=== PATIENT | female | born 1955 | race Caucasian/White ===

== ENCOUNTER 2022-08-12 11:00 | Outpatient (RCR) | payer OTHER, SELFPAY ==
--- NOTE | 2022-07-29 13:27 | HMH.PTOPEV ---
PT Outpatient Evaluation Rehab PT Outpatient Evaluation Start: 07/29/22 13:08 Freq: Status: Active Protocol: Document 07/29/22 13:08 ELVA (Rec: 07/29/22 13:27 ELVA [id number]) E-signed By Richie Adams, PT Outpatient Therapy Subjective History Subjective History Patient is a 66 year old female presenting to outpatient PT with reports acute L sided cervical spine pain starting approximately 1 month ago. Initial injury occurred while performing work related duties including repetitive heavy lifing at [employer]. Patient suggests that this is a workmans comp case, but no documentation on file to confirm. Comorbidities include hx of L RCR x 2, ORIF L wrist, bowel resection and appendectomy. Chief Complaint Pain,Spasms,Stiff,Paresthesia Symptom Type Burning,Numbness,Tingling Symptoms Relieved By Rest/Positioning,OTC Meds, Prescription Meds Symptoms Aggravated By Physical Activity,Lifting Prior Functional Limitations None Current Functional Limitations Reaching,Lifting,Housework, Driving,Sleeping Symptom Description Constant and Continuous, Constant but Variable Level of pain today (0-10) 8 Pain scale - at its best (0-10) 4 Pain scale - at its worst (0-10) 8 Cervical Eval Palpation Cervical Muscles L Cervical Paraspinal,L Suboccipital,L CT Junction,L Thoracic Paraspinals Cervical/Thoracic Palpation Findings Tenderness,Spasm Posture Head/C-Spine Posture Sitting Position C-Spine Flattened Head/C-Spine Posture Standing Position C-Spine Flattened Flexibility Deficits Upper Trapezius Muscle Length (L) Moderate Tightness Levaetor Scapulae Muscle Length (L) Moderate Tightness Pectoralis Minor Muscle Length (L) Moderate Tightness Passive Joint Mobility Cervical PIVM Dec: R OA L OA R AA L AA R C2/3 L C2/3 R C3/4 L C3/4 R C4/5 L C4/5 R C5/6
== END 2022-08-12 11:05 | disposition home or self-care (01) ==
LOC: PT 11:00
PROVIDERS: PCP Family Medicine; Visit Provider Family Medicine
DX: M54.2 Cervicalgia (principal); M25.512 Pain in left shoulder
CPT/HCPCS: 97010; 97014; 97110; 97163; G0283

== ENCOUNTER → 2023-05-03 23:00 | Outpatient (CLI) | payer MEDICARE, SELFPAY ==
[2023-05-03 18:43] LABS: Basophils % 0.8 % (0.1-2.0); Eosinophils # 0.1 K/mm3 (0.0-0.4); Eosinophils % 2.5 % (0.1-12.0); Hematocrit 42.6 % (37.0-47.0); Hemoglobin 13.5 g/dL (12.2-16.2); Lymphocytes # 1.9 K/mm3 (0.7-4.5); Lymphocytes % 37.7 % (10-50); Mean Corpuscular HGB Conc 31.6 g/dL (31.8-35.4); Mean Corpuscular Hemoglobin 31.1 pg (27.0-31.2); Mean Corpuscular Volume 98.6 fl (81-99); Mean Platelet Volume 10.4 fl (7.4-10.4); Monocytes # 0.4 K/mm3 (0.1-1.0); Monocytes % 7.9 % (1.7-9.3); Neutrophils # 2.6 K/mm3 (1.8-7.8); Neutrophils % 51.1 % (37.0-80.0); Platelet Count 242 K/mm3 (142-424); Red Blood Count 4.32 M/mm3 (4.20-5.40); Red Cell Distribution Width 12.4 % (11.5-17.5)
[2023-05-03 18:46] LABS: Alanine Aminotransferase 20 U/L (12-78); Albumin Level 4.4 g/dl (3.5-5.0); Albumin/Globulin Ratio 1.6 (1.1-1.8); Alkaline Phosphatase 78 U/L (38-126); Aspartate Amino Transferase 30 U/L (14-36); Bilirubin,Total 0.3 mg/dl (0.2-1.3); Blood Urea Nitrogen 9 mg/dl (7-17); Calcium 9.6 mg/dl (8.4-10.2); Carbon Dioxide 26 mmol/L (22.0-30.0); Chloride 107 mmol/L (98-107); Chol/HDL Ratio 3.6 (1-3.5); Cholesterol 228 mg/dl (140-200); Estimated Glomerular Filt Rate 100 ml/min (>60); GFR (African American) 121 ML/MIN (>60); Globulin 2.7 g/dL (1.3-3.2); Glucose 97 mg/dl (74-100); HDL Cholesterol 64 mg/dl (40-60); Sodium 140 mmol/L (136-145); Total Protein,Serum 7.1 g/dl (6.3-8.2); Triglycerides 190 mg/dl (30-150); VLDL Cholesterol 38 mg/dL (0-40)
[2023-05-03 18:57] LABS: Direct LDL Cholesterol 116.98 mg/dL (100-129)
[2023-05-03 18:58] LABS: Anion Gap 11.3 mEq/L (5-15); Potassium 4.3 mmoL/L (3.5-5.1)
[2023-05-03 19:20] LABS: Thyroid Stimulating Hormone 1.21 uIU/mL (0.465-4.68)
[2023-05-03 22:54] LABS: Hemoglobin A1C 5.4 % (4.0-6.0)
== END ==
PROVIDERS: PCP Family Medicine; Visit Provider Family Medicine
DX: E07.9 Disorder of thyroid, unspecified (principal); H69.82 Other specified disorders of Eustachian tube, left ear; Z00.8 Encounter for other general examination; E11.9 Type 2 diabetes mellitus without complications; E78.5 Hyperlipidemia, unspecified
CPT/HCPCS: 80053; 80061; 83036; 84443; 85025

== ENCOUNTER 2024-07-28 09:06 | Outpatient (CLI) | payer MEDICARE, SELFPAY ==
[2024-07-28 18:25] LABS: Albumin Level 4.7 g/dl (3.5-5.0); Chloride 101 mmol/L (98-107); Sodium 137 mmol/L (136-145)
[2024-07-28 18:27] LABS: Basophils # 0.1 K/mm3 (0-0.2); Basophils % 1.5 % (0.1-2.0); Eosinophils # 0.1 K/mm3 (0.0-0.4); Eosinophils % 1.7 % (0.1-12.0); Hematocrit 39.9 % (37.0-47.0); Hemoglobin 13.6 g/dL (12.2-16.2); Lymphocytes # 1.6 K/mm3 (0.7-4.5); Lymphocytes % 33.4 % (10-50); Mean Corpuscular HGB Conc 34.2 g/dL (31.8-35.4); Mean Corpuscular Hemoglobin 31.9 pg (27.0-31.2); Mean Corpuscular Volume 93.4 fl (81-99); Mean Platelet Volume 10.3 fl (7.4-10.4); Monocytes # 0.3 K/mm3 (0.1-1.0); Monocytes % 6.9 % (1.7-9.3); Neutrophils # 2.7 K/mm3 (1.8-7.8); Neutrophils % 56.6 % (37.0-80.0); Platelet Count 215 K/mm3 (142-424); Red Blood Count 4.27 M/mm3 (4.20-5.40); Red Cell Distribution Width 12.8 % (11.5-17.5); White Blood Count 4.8 K/mm3 (4.8-10.8)
[2024-07-28 18:28] LABS: Alanine Aminotransferase 21 U/L (12-78); Albumin/Globulin Ratio 1.6 (1.1-1.8); Alkaline Phosphatase 85 U/L (38-126); Aspartate Amino Transferase 28 U/L (14-36); Bilirubin,Total 0.6 mg/dl (0.2-1.3); Blood Urea Nitrogen 9 mg/dl (7-17); Carbon Dioxide 28 mmol/L (22.0-30.0); Cholesterol 234 mg/dl (140-200); Estimated Glomerular Filt Rate 100 ml/min (>60); GFR (African American) 121 ML/MIN (>60); Globulin 2.9 g/dL (1.3-3.2); Total Protein,Serum 7.6 g/dl (6.3-8.2); Triglycerides 98 mg/dl (30-150); VLDL Cholesterol 20 mg/dL (0-40)
[2024-07-28 18:29] LABS: Calcium 9.7 mg/dl (8.4-10.2); Chol/HDL Ratio 2.5 (1-3.5); Glucose 111 mg/dl (74-100); HDL Cholesterol 93 mg/dl (40-60)
[2024-07-28 18:43] LABS: Direct LDL Cholesterol 109.94 mg/dL (100-129)
[2024-07-28 18:48] LABS: 25-OH Vitamin D, Total 22.9 ng/mL (30-100)
[2024-07-28 18:59] LABS: Thyroid Stimulating Hormone 1.52 uIU/mL (0.465-4.68)
[2024-07-28 19:11] LABS: Hemoglobin A1C 5.3 % (4.0-6.0)
== END 2024-07-28 23:59 | disposition home or self-care (01) ==
LOC: LAB.DROPOF 07-31 09:06
PROVIDERS: PCP Family Medicine; Visit Provider Family Medicine
DX: R11.2 Nausea with vomiting, unspecified (principal); E11.9 Type 2 diabetes mellitus without complications; E78.5 Hyperlipidemia, unspecified; E07.9 Disorder of thyroid, unspecified; E55.9 Vitamin D deficiency, unspecified
CPT/HCPCS: 80053; 80061; 82306; 83036; 84443; 85025

== ENCOUNTER 2024-08-07 07:44 | Outpatient (CLI) | payer MEDICARE, SELFPAY ==
--- NOTE | 2024-08-07 07:49 | US_ITS ---
PROCEDURE INFORMATION: Exam: US Abdomen, Limited; Right Upper Quadrant Exam date and time: 08/07/2024 7:58 AM Age: 69 years old Clinical indication: Abdominal pain; Additional info: Ruq pain and nausea and vomiting TECHNIQUE: Imaging protocol: Real time ultrasound of the abdomen with image documentation. Limited exam focused on the right upper quadrant. COMPARISON: No relevant prior studies available. FINDINGS: Liver: There is a diffuse increase in hepatic parenchymal echogenicity, consistent with fatty infiltration. Gallbladder: Gallbladder wall 2.6 mm. Polyp on the anterior wall of the gallbladder Biliary ducts: Common bile duct 5.1 mm Pancreas: Normal pancreas Right kidney: Right kidney 10.5 cm. No hydronephrosis. Right renal cortex 6 mm. 14 mm simple cyst right kidney. . No follow-up imaging recommended . Portal venous: Hepatopetal flow in the portal vein IMPRESSION: There is a diffuse increase in hepatic parenchymal echogenicity, consistent with fatty infiltration.
== END 2024-08-07 23:59 | disposition home or self-care (01) ==
LOC: RAD 07:45
PROVIDERS: PCP Family Medicine; Visit Provider Family Medicine
DX: R11.2 Nausea with vomiting, unspecified (principal); R10.11 Right upper quadrant pain
CPT/HCPCS: 76705

== ENCOUNTER 2024-08-18 09:57 | Outpatient (CLI) | payer OTHER, SELFPAY ==
--- NOTE | 2024-08-18 10:05 | XR_ITS ---
FINAL REPORT CLINICAL HISTORY: neck pain COMPARISON: None FINDINGS: Three views of the cervical spine were obtained. Fusion is noted of C4 through C6. There is no fracture present. Bony alignment is stable. There are no significant degenerative changes. IMPRESSION: No acute process. Reviewed, Interpreted and Dictated by Tyler Buchanan III, MD Transcribed by Mary Griffith Authenticated and [facility]
== END 2024-08-18 23:59 | disposition home or self-care (01) ==
PROVIDERS: PCP Family Medicine; Visit Provider Family Medicine
DX: M54.2 Cervicalgia (principal)
CPT/HCPCS: 72040

== ENCOUNTER 2024-09-25 15:09 | Outpatient (CLI) | payer MEDICARE, SELFPAY ==
[2024-09-25 17:44] LABS: Influenza A, PCR Not Detected (NotDetected); Influenza B, PCR Not Detected (NotDetected)
[2024-09-25 19:30] LABS: Coronavirus 19, PCR Detected (NotDetected)
== END 2024-09-25 23:59 | disposition home or self-care (01) ==
LOC: LAB.DROPOF 09-26 12:43
PROVIDERS: PCP Family Medicine; Visit Provider Family Medicine
DX: J06.9 Acute upper respiratory infection, unspecified (principal)
CPT/HCPCS: 87636

== ENCOUNTER 2024-11-15 11:48 | Outpatient (CLI) | payer MEDICARE, SELFPAY ==
[2024-11-15 19:30] LABS: Chloride 103 mmol/L (98-107); Potassium 4.1 mmoL/L (3.5-5.1); Sodium 138 mmol/L (136-145)
[2024-11-15 19:33] LABS: Alanine Aminotransferase 21 U/L (12-78); Albumin/Globulin Ratio 2.4 (1.1-1.8); Alkaline Phosphatase 81 U/L (38-126); Anion Gap 13.1 mEq/L (5-15); Aspartate Amino Transferase 29 U/L (14-36); Bilirubin,Total 0.5 mg/dl (0.2-1.3); Blood Urea Nitrogen 9 mg/dl (7-17); Carbon Dioxide 26 mmol/L (22.0-30.0); Estimated Glomerular Filt Rate 83 ml/min (>60); GFR (African American) 101 ML/MIN (>60); Globulin 2.1 g/dL (1.3-3.2); Total Protein,Serum 7.1 g/dl (6.3-8.2)
[2024-11-15 19:34] LABS: Calcium 9.5 mg/dl (8.4-10.2); Glucose 105 mg/dl (74-100)
== END 2024-11-15 23:59 | disposition home or self-care (01) ==
LOC: LAB.DROPOF 11-16 13:15
PROVIDERS: PCP Family Medicine; Visit Provider Family Medicine
DX: Z09 Encounter for follow-up examination after completed treatment for conditions other than malignant neoplasm (principal); K02.9 Dental caries, unspecified; M50.90 Cervical disc disorder, unspecified, unspecified cervical region; M15.4 Erosive (osteo)arthritis; Z90.710 Acquired absence of both cervix and uterus
CPT/HCPCS: 80053

== ENCOUNTER 2025-08-01 11:30 | Outpatient (CLI) | payer MEDICARE, SELFPAY ==
[2025-08-01 15:26] LABS: Hematocrit 38.6 % (37.0-47.0); Hemoglobin 12.8 g/dL (12.2-16.2); Immature Granulocytes % 0.2 %; Mean Corpuscular HGB Conc 33.2 g/dL (31.8-35.4); Mean Corpuscular Hemoglobin 30.8 pg (27.0-31.2); Mean Corpuscular Volume 92.8 fl (81-99); Nucleated Red Blood Cells % 0 %; Platelet Count 222 K/mm3 (142-424); Red Blood Count 4.16 M/mm3 (4.20-5.40); Red Cell Distribution Width-SD 40.0 fL; White Blood Count 5.3 K/mm3 (4.8-10.8)
[2025-08-01 15:50] LABS: Alanine Aminotransferase 17 U/L (12-78); Albumin Level 4.3 g/dl (3.5-5.0); Albumin/Globulin Ratio 1.7 (1.1-1.8); Alkaline Phosphatase 82 U/L (38-126); Anion Gap 11.4 mEq/L (5-15); Aspartate Amino Transferase 26 U/L (14-36); Bilirubin,Total 0.7 mg/dl (0.2-1.3); Blood Urea Nitrogen 9 mg/dl (7-17); Calcium 9.6 mg/dl (8.4-10.2); Carbon Dioxide 27 mmol/L (22.0-30.0); Chloride 104 mmol/L (98-107); Cholesterol 201 mg/dl (140-200); Creatinine,Serum 0.70 mg/dl (0.52-1.04); Estimated Glomerular Filt Rate 83 ml/min (>60); GFR (African American) 101 ML/MIN (>60); Globulin 2.5 g/dL (1.3-3.2); Glucose 103 mg/dl (74-100); HDL Cholesterol 76 mg/dl (40-60); Potassium 4.4 mmoL/L (3.5-5.1); Sodium 138 mmol/L (136-145); Total Protein,Serum 6.8 g/dl (6.3-8.2); Triglycerides 138 mg/dl (30-150)
--- OUTSIDE RECORDS SUMMARY | 2025-08-02 12:54 | XMS_ITS | Clinical Summary ---
Author Organization [facility] Address [address] [place] [address] Phone Care Team Providers Care Warp Spinner Name Role Phone Miguel Guillory MD Primary Care Provider [phone] Allergies No known active allergies Medications vitamin E, DL, Acetate, 400 unit capsule Take by mouth daily. Active Esterified Estrogens 1.25 mg Oral Tablet Take by mouth every morning. Active penicillin v potassium (VEETID) 500 mg tablet Take by mouth daily. Takes daily- history of rheumatic fever age 15 Active penicillin v potassium (VEETID) 500 mg Oral Tablet Take by mouth every 8 hours. Active acetaminophen (TYLENOL) 500 mg Oral Tablet Take by mouth every 4 hours as needed for Pain (2 tablets). Active pregabalin (LYRICA) 75 mg Oral Capsule Take 1 capsule by mouth twice a day for 7 days, then increase to 2 capsules twice a day 120 Capsule 3 Active Additional Information Patient not taking.Reason: Other, Reported on 01/17/2024 ergocalciferol (VITAMIN D) 1,250 mcg (50,000 unit) Oral CapsuleIndicati ons:Low vitamin D level Take 1 Capsule by mouth once a week. 12 Capsule 3 Active oxyCODONE (ROXICODONE) 5 mg Oral Tablet Take 1-2 Tablets by mouth every 6 hours as needed for Major Surgery/Trauma (G89.18). 60 Tablet 3 Active Additional Information Patient not taking.Reason: Other, Reported on 01/17/2024 methocarbamoL (ROBAXIN) 500 mg Oral TabletIndicatio ns:Status post cervical spinal fusion Take 1.5 Tablets by mouth 3 times daily as needed (muscle spasm). 90 Tablet 1 3 Active Additional Information Patient not taking.Reason: Other, Reported on 01/17/2024 Active Problems Problem Noted Date Diagnosed Date Status post cervical spinal fusion 01/17/2024 Cervical pain 01/17/2024 Neck sprain 01/17/2024 Cervical spondylosis 04/28/2023 Overview (04/28/2023): Added automatically from request for surgery [id number] Cervical stenosis of spine 12/09/2022 Cervical radiculopathy 12/09/2022 Surgical History Surgery Date Site/Laterality Comments HYSTERECTOMY 1998 ABDOMINAL ADHESION SURGERY APPENDECTOMY SHOULDER SURGERY left 2006 ARM SURGERY 2013 CERVICAL FUSION 05/17/2023 Spine/N/A C4/5 C5/6 C6/7 ANTERIOR CERVICAL DISCECTOMY FUSION/ PLATING/ILIAC CREST BONE GRAFT; Surgeon: William Canchola MD; Location: [facility]; Service: Spine Medical devices from this surgery are in the Medical Devices section. Medical History Medical History Date Comments Heart abnormality H/o rheumatic fever age 15 Heart murmur Cervical spondylosis Family History Medical History Relation Name Comments Anesth Problems Neg Hx Social History Tobacco Use Types Packs/Day Years Used Date Smoking Tobacco: Former Cigarettes 0.1 5 0 03/19/2018 - 03/19/2023 Tobacco Cessation:Counseling Given: Not Answered Comments:3 cig per day Alcohol Use Standard Drinks/Week Comments No 0 (1 standard drink = 0.6 oz pur e alcohol) Overall Financial Resource Strain (CARDIA) Answe r Date Recorded How hard is it for you to pa y for the very basics like food, housing, medical care, and heating? Not hard at all 05/18/2023 PHQ-2 Answer Date Recorded PHQ-2 Total Score 0 05/18/2023 Exercise Vital Sign Answer Date Recorde d On average, how many days pe r week do you engage in moderate to strenuous exercise (like a brisk walk)? 0 days 05/18/2023 On average, how many minutes do you engage in exercise at this level? 0 min 05/18/2023 Hunger Vital Sign Answer Date Recorded Within the past 12 months, y ou worried that your food would run out before you got the money to buy more. Never true 05/18/20 23 Within the past 12 months, t he food you bought just didn't last and you didn't have money to get more. Never true 05/18/2023 PRAPARE - Transportation Answer Date Re corded In the past 12 months, has l ack of transportation kept you from medical appointments or from getting medications? No 05/2023 In the past 12 months, has l ack of transportation kept you from meetings, work, or from getting things needed for daily living? No 05/18/2023 Comments No Sex and Gender Information Value Date Recorded Sex Assigned at Not on file Legal Sex Female 7:18 AM EDT Gender Identity Not on file Sexual Orientation Not on file Last Filed Vital Signs Vital Sign Reading Time Taken Comments Blood Pressure 105/67 05/18/2023 7:33 AM EDT Pulse 60 05/18/2023 7:33 AM EDT Temperature 36.7 C (98 F) 05/18/2023 7:33 AM EDT Respiratory Rate 20 05/18/2023 7:33 AM EDT Oxygen Saturation 98% 05/18/2023 7:33 AM EDT Inhaled Oxygen Concentration - - Weight 63.5 kg (140 lb) 01/17/2024 10:26 AM EDT Height 170.2 cm (5' 7 ) 01/17/2024 10:26 AM EDT Body Mass Index 21.93 01/17/2024 10:26 AM EDT Plan of Treatment Health Maintenance Due Date Last Done Comments Wellness Exam Medicare 1958 Hepatitis C Screening 1975 Breast Cancer Screening 1997 Cologuard 2002 Colon Cancer Screening 2002 Colonoscopy 2002 FIT 2002 Sigmoidoscopy 2002 Virtual Colonography 2002 Bone Density Screening 2022 COVID-19 Vaccine ( season) 2025 Influenza Vaccine (#1) 2025 3, 07/21/2022, 06/13/2020, Additional history exists DTaP/TDaP/Td (2 - Td or Tdap) 05/30/2026 05/30/2016 Zoster Completed 09/01/2021, 06/21/2021 Pneumococcal Vaccine 50+ Completed 022, 06/24/2016, 08/21/2014 Hepatitis B Vaccine Aged Out No longe r eligible based on patient's age to complete this topic Meningococcal B Vaccine Aged Out No l onger eligible based on patient's age to complete this topic Medical Devices Implanted Type Area Shrinker Device Identifier Shelf Expiration Date Model / Serial / Lot Stow Suture 1.3mm Y-Knot Flex - [id number] Implanted:Qty: 1 on 03/30/2013 by Mark Maldonado MD at [facility] Left: Elbow CONMED:LINVATE 03/10/2018 Y1301 / +[id number] / Stow Suture 1.3mm Y-Knot Flex - [id number] Implanted:Qty: 1 on 03/30/2013 by Mark Maldonado MD at [facility] Left: Elbow CONMED:LINVATE 02/07/2018 Y1301 / +[id number] / Putty 2.5ml I-Fact Dbm Crsh Syr Bg - [id number] Implanted:Qty: 1 on 05/17/2023 by William Canchola MD at [facility] 09/09/2025 700-025 / / [id number] Spacer Cervical Stealth [id number] 6 Degree - [id number] Implanted:Qty: 2 on 05/17/2023 by William Canchola MD at [facility] obiwon [id number] / / Plate Bone Ambassador L34 Mm Spine 2 Level Nonsterile - [id number] Implanted:Qty: 1 on 05/17/2023 by William Canchola MD at [facility] [employer] 05- / / Screw Variable Self Drilling/Tappin g 4.0x14mm - [id number] Implanted:Qty: 6 on 05/17/2023 by William Canchola MD at [facility] [employer] 05- / / Insurance [employer] MEDICARE PPO MR [facility] CLAIMS SERVICES [employer] [address] [address] MEDICARE PPO MR Advance Directives For more information, please contact: [phone] * Full Code (Latest Code Status on File) Date Activated Date Inactivated Comments 05/17/2023 3:51 PM 05/18/2023 5:16 PM * Full Code Date Activated Date Inactivated Comments 05/17/2023 3:51 PM 05/17/2023 3:51 PM * Full Code Date Activated Date Inactivated Comments 03/30/2013 1:03 PM 03/30/2013 6:36 PM Care Teams Warp Spinner Relationship Specialty Start Date End Date Miguel Guillory MD PCP - General Family Medicine 03/21/13
== END 2025-08-01 23:59 | disposition home or self-care (01) ==
LOC: LAB.DROPOF 08-02 12:46
PROVIDERS: PCP Family Medicine; Visit Provider Family Medicine
DX: I10 Essential (primary) hypertension (principal)
CPT/HCPCS: 80053; 80061; 85025